=== PATIENT | female | born 1975 | race Caucasian/White ===

== ENCOUNTER 2018-04-03 18:57 | Emergency (ER) | payer MEDICAID, OTHER ==
[~2018-04-03] VITALS: Ht 185.4 cm; Wt 89.0 kg
[2018-04-03 19:17] VITALS: BP 125/49
== END 2018-04-03 19:47 | disposition home or self-care (01) ==
LOC: ED 19:40
DX: K02.9 Dental caries, unspecified (principal)
CPT/HCPCS: 99283

== ENCOUNTER 2018-05-05 10:22 | Emergency (ER) | payer MEDICAID, OTHER ==
[~2018-05-05] VITALS: Ht 186.7 cm; Wt 86.0 kg
[2018-05-05] MEDS ORDERED: DIPHENHYDRAMINE 50 MG/ML, 1ML ONE (11:00)
[2018-05-05] MEDS ORDERED: SODIUM CHLORIDE 0.9% 1,000ML IVBOLUS ONE (11:00)
[2018-05-05] MEDS ORDERED: METOCLOPRAMIDE 5 MG/ML, 2ML IVPush ONE (11:00)
[2018-05-05] MEDS ORDERED: DIPHENHYDRAMINE 50 MG/ML, 1ML IVPush ONE (11:00)
[2018-05-05] MEDS ORDERED: METOCLOPRAMIDE 5 MG/ML, 2ML ONE (11:01)
[2018-05-05 11:42] LABS: MEAN CORPUSCULAR HEMOGLOBIN 30.4 pg (27.0-34.8); MEAN CORPUSCULAR HGB CONC 34.5 g/dL (32.4-35.8); MEAN PLATELET VOLUME 7.9 fL (7.4-10.4); PLATELET COUNT 143 x10^3/uL (130-400); RED BLOOD COUNT 4.84 x10^6/uL (3.82-5.3); RED CELL DISTRIBUTION WIDTH 13.4 % (9.6-15.2)
[2018-05-05 11:56] LABS: ALBUMIN 3.6 g/dL (3.4-5.0); ANION GAP 5 mmol/L (5-15); CALCIUM 8.3 mg/dL (8.5-10.1); CHLORIDE 111 mmol/L (98-107); CREATININE 0.76 mg/dL (0.55-1.02)
[2018-05-05 12:06] LABS: BASOPHILS % (AUTO) 0 % (0-1); EOSINOPHILS # (AUTO) 0.07 x10^3/uL (0-0.4); EOSINOPHILS % (AUTO) 3 % (1-7); LYMPHOCYTES # (AUTO) 0.72 x10^3/uL (1-3.4); LYMPHOCYTES % (AUTO) 26 % (22-44); MD SCAN; MONOCYTES # (AUTO) 0.41 x10^3/uL (0.2-0.8); MONOCYTES % (AUTO) 15 % (2-9); NEUTROPHILS # (AUTO) 1.62 x10^3/uL (1.8-6.8); NEUTROPHILS % (AUTO) 57 % (42-75)
[2018-05-05] MEDS ORDERED: KETOROLAC 30 MG/1 ML IVPush ONE (12:30)
[2018-05-05] MEDS ORDERED: DIAZEPAM 5 MG TABLET PO ONE (12:30)
[2018-05-05] MEDS ORDERED: KETOROLAC 30 MG/1 ML ONE (12:33)
[2018-05-05] MEDS ORDERED: DIAZEPAM 5 MG TABLET ONE (12:33)
[2018-05-05 12:42] VITALS: BP 115/71
[2018-05-05] MEDS ORDERED: HYDROmorphone 2 MG/ML, 1ML ONE (13:51)
[2018-05-05] MEDS ORDERED: HYDROmorphone 1 MG/ML, 1ML IM ONE (14:00)
== END 2018-05-05 14:42 | disposition home or self-care (01) ==
LOC: ED 11:45
DX: G44.219 Episodic tension-type headache, not intractable (principal)
CPT/HCPCS: 36415; 70450; 70551; 80048; 82040; 85025; 96372; 96374; 96375; 99285; J1170; J1200; J1885; J2765; J7030

== ENCOUNTER 2018-06-08 17:52 | Emergency (ER) | payer SELFPAY ==
[~2018-06-08] VITALS: Ht 185.4 cm; Wt 90.0 kg
[2018-06-08 18:20] VITALS: BP 130/82
[2018-06-08] MEDS ORDERED: ALBUTEROL/IPRATROPIUM 2.5MG/0.5MG, 3 ML NPPB ONE (18:30)
[2018-06-08 18:52] LABS: ALANINE AMINOTRANSFERASE 23 U/L (12-78); ANION GAP 6 mmol/L (5-15); CALCIUM 8.7 mg/dL (8.5-10.1); CHLORIDE 109 mmol/L (98-107); CREATININE 0.87 mg/dL (0.55-1.02)
[2018-06-08 18:54] LABS: ALKALINE PHOSPHATASE 50 U/L (45-117); BILIRUBIN,TOTAL 0.3 mg/dL (0.2-1.0)
[2018-06-08] MEDS ORDERED: ALBUTEROL/IPRATROPIUM 2.5MG/0.5MG, 3 ML ONE (18:55)
[2018-06-08 18:57] LABS: BASOPHILS % (AUTO) 1 % (0-1); EOSINOPHILS % (AUTO) 8 % (1-7); LYMPHOCYTES % (AUTO) 22 % (22-44); MEAN CORPUSCULAR HEMOGLOBIN 29.7 pg (27.0-34.8); MEAN CORPUSCULAR HGB CONC 33.8 g/dL (32.4-35.8); MEAN CORPUSCULAR VOLUME 87.9 fL (80-100); MONOCYTES % (AUTO) 5 % (2-9); NEUTROPHILS % (AUTO) 64 % (42-75); PLATELET COUNT 272 x10^3/uL (130-400); RED BLOOD COUNT 4.89 x10^6/uL (3.82-5.3); RED CELL DISTRIBUTION WIDTH 13.1 % (9.6-15.2)
[2018-06-08 18:58] LABS: BASOPHILS # (AUTO) 0.04 x10^3/uL (0-0.1); EOSINOPHILS # (AUTO) 0.67 x10^3/uL (0-0.4); MD NO; MONOCYTES # (AUTO) 0.42 x10^3/uL (0.2-0.8)
== END 2018-06-08 19:40 | disposition home or self-care (01) ==
LOC: ED 19:34
DX: J45.909 Unspecified asthma, uncomplicated (principal)
CPT/HCPCS: 36415; 71046; 80053; 85025; 94640; 99284; J7620

== ENCOUNTER 2019-08-31 08:45 | Emergency (ER) | payer MEDICAID ==
[~2019-08-31] VITALS: Ht 182.9 cm; Wt 94.6 kg
--- NOTE | 2019-08-31 09:32 | NUR ---
PT WITH C/O RECTUM PAIN AND DIARRHEA X 5 DAYS, PT STATES SHE IS ABLE TO KEEP FLUIDS DOWN, PT STATES SHE BECAME DIZZY THIS AM AND DECIDED TO COME GET HER KIDNEYS CHECKED, PT WITH HX OF POLYCYSTIC KIDNEY DISEASE. PT ALSO WITH C/O GRECO, PT WITH HX MIGRAINES. PT DENIES CHANGES IN VISION
[2019-08-31] MEDS ORDERED: ONDANSETRON 2MG/ML, 2ML IVPush ONE (10:00)
[2019-08-31] MEDS ORDERED: SODIUM CHLORIDE 0.9% 1,000ML IVBOLUS ONE ×2 (10:00→12:30)
[2019-08-31] MEDS ORDERED: SODIUM CHLORIDE FLUSH 10ML SYR IVF ONE (10:00)
[2019-08-31] MEDS ORDERED: ONDANSETRON 2MG/ML, 2ML ONE (10:05)
[2019-08-31 10:42] LABS: MEAN CORPUSCULAR HEMOGLOBIN 30.5 pg (27.0-34.8); MEAN CORPUSCULAR VOLUME 87.1 fL (80-100); MEAN PLATELET VOLUME 7.9 fL (7.4-10.4); PLATELET COUNT 170 x10^3/uL (130-400); RED BLOOD COUNT 4.35 x10^6/uL (3.82-5.3); RED CELL DISTRIBUTION WIDTH 13.4 % (9.6-15.2)
--- NOTE | 2019-08-31 10:43 | NUR ---
IV ATTEMPTED X2; UNSUCCESSFUL.
[2019-08-31 10:55] LABS: ALANINE AMINOTRANSFERASE 17 U/L (12-78); ALBUMIN 3.2 g/dL (3.4-5.0); ANION GAP 5 mmol/L (5-15); CALCIUM 8.1 mg/dL (8.5-10.1); CHLORIDE 111 mmol/L (98-107); CREATININE 0.78 mg/dL (0.55-1.02)
[2019-08-31 10:59] LABS: ALKALINE PHOSPHATASE 43 U/L (45-117); BILIRUBIN,TOTAL 0.4 mg/dL (0.2-1.0); TOTAL PROTEIN 6.5 g/dL (6.4-8.2)
--- NOTE | 2019-08-31 10:59 | NUR ---
PIV INITIATED AT THIS TIME, PT MEDICATED PER SEP. VSS.
[2019-08-31 11:13] LABS: BASOPHILS # (AUTO) 0.01 x10^3/uL (0-0.1); BASOPHILS % (AUTO) 0 % (0-1); EOSINOPHILS # (AUTO) 0.11 x10^3/uL (0-0.4); EOSINOPHILS % (AUTO) 4 % (1-7); LYMPHOCYTES # (AUTO) 0.72 x10^3/uL (1-3.4); LYMPHOCYTES % (AUTO) 27 % (22-44); MD SCAN; MONOCYTES # (AUTO) 0.32 x10^3/uL (0.2-0.8); MONOCYTES % (AUTO) 12 % (2-9); NEUTROPHILS # (AUTO) 1.48 x10^3/uL (1.8-6.8); NEUTROPHILS % (AUTO) 56 % (42-75)
[2019-08-31 11:17] LABS: CLOSTRIDIUM DIFFICILE ANTIGEN NEGATIVE; CLOSTRIDIUM DIFFICILE TOXIN NEGATIVE (Negative)
--- NOTE | 2019-08-31 11:55 | NUR ---
PT RESTING ON GURNEY, UPDATED ON POC. PT WITH NO EXPRESSED NEEDS AT THIS TIME, KATI BERGMAN NOTED
[2019-08-31 13:02] VITALS: BP 109/58
--- NOTE | 2019-08-31 13:02 | NUR ---
BREAK RN: PT LAYING ON GURNEY AWAKE & COMFORTABLE, WATCHING TV, RESPONDS APPROP TO STAFF, NAD, NO NEEDS AT THIS TIME, CALL LIGHT WITHIN REACH.
== END 2019-08-31 14:37 | disposition home or self-care (01) ==
LOC: ED 10:21
DX: R19.7 Diarrhea, unspecified (principal); R10.9 Unspecified abdominal pain; R11.0 Nausea; R51 Headache; R00.8 Other abnormalities of heart beat
CPT/HCPCS: 36415; 74021; 80053; 83690; 84703; 85025; 87046; 87324; 87427; 89055; 93005; 96361; 96374; 99285; J2405; J7030

== ENCOUNTER 2020-09-03 10:05 | Outpatient (CLI) | payer MEDICAID | END 2020-09-03 23:59 | disposition home or self-care (01) | LOC: CFH 10:05 | PROVIDERS: ATTEND Nurse Practitioner Family | DX: Z12.31 Encounter for screening mammogram for malignant neoplasm of breast (principal); N64.89 Other specified disorders of breast | CPT/HCPCS: 77067 ==